=== PATIENT | female | born 1970 | race Caucasian/White ===

== ENCOUNTER → 2017-11-11 09:21 | Outpatient (CLI) | payer BC, SELFPAY ==
--- NOTE | 2017-11-11 09:30 | RAD_ITS ---
STUDY: X-RAY CHEST REASON FOR EXAM: Female, 47 years old. Pleural effusion. TECHNIQUE: PA and lateral views of the chest. COMPARISON: None. FINDINGS: There is a small to moderate-sized right pleural effusion at the anterolateral costophrenic sulcus, extending into the posterolateral basilar pleural space and oblique pleural fissure. Subsegmental airspace disease in the right base may be partial collapse or infection, the former more likely as there is no shift of the cardiac mediastinal structures. The left lung is clear. Normal size heart. Normal mediastinum and carlito. Normal visualized pulmonary arteries. Normal visualized aortic arch and descending thoracic aorta. Normal visualized thoracic spine. Normal visualized ribs, clavicles, and shoulders. There is no demonstrated abnormality of the visualized soft tissue structures of the upper abdomen. RAD/Chest PA and Lateral IMPRESSION: Small moderate size right pleural effusion with partial right lung base collapse. Infection is not excluded. Electronically Signed: Rigo Lynn MD at 22:13 EST , Service support ,
--- NOTE | 2017-11-11 09:35 | RAD_ITS ---
STUDY: X-RAY CHEST REASON FOR EXAM: Female, 47 years old. Pleural effusion. TECHNIQUE: Single right lateral decubitus view of the chest. The images degraded by grid artifact. COMPARISON: PA and lateral chest x-ray 0937 hours. FINDINGS: There is only a minimal layering component of the right pleural effusion, most of which appears loculated at the lateral right base. Partial collapse of the right lung base unchanged. The left lung remains clear. Normal size heart. Normal mediastinum and carlito. Normal visualized pulmonary arteries. Normal visualized aortic arch and descending thoracic aorta. Normal visualized thoracic spine. Normal visualized ribs, clavicles, and shoulders. There is no demonstrated abnormality of the visualized soft tissue structures of the upper abdomen. RAD/Special CXR (Obl/Decub/A/L) IMPRESSION: The right basilar pleural effusion is predominantly loculated. Partial collapse of right lung base unchanged. Infection is not excluded. Electronically Signed: Rigo Lynn MD at 22:17 EST , Service support ,
--- NOTE | 2017-11-11 09:35 | RAD_ITS ---
STUDY: X-RAY CHEST REASON FOR EXAM: Female, 47 years old. Pleural effusion. TECHNIQUE: Single lateral decubitus view of the chest. There is linear grid artifact. COMPARISON: PA and lateral chest x-ray 0937 hours. FINDINGS: There is no significant layering of the lateral basilar right pleural effusion. Partial collapse of the right lung base again noted. The left lung is clear, and no left pleural effusion is demonstrated. Normal size heart. Normal mediastinum and carlito. Normal visualized pulmonary arteries. Normal visualized aortic arch and descending thoracic aorta. Normal visualized thoracic spine. Normal visualized ribs, clavicles, and shoulders. There is no demonstrated abnormality of the visualized soft tissue structures of the upper abdomen. RAD/Special CXR (Obl/Decub/A/L) IMPRESSION: Loculated right lateral basilar pleural effusion with partial collapse in the right lung base. Infection is not excluded. Electronically Signed: Rigo Lynn MD at 22:43 EST , Service support ,
== END ==
PROVIDERS: Family Provider Family Medicine; PCP Family Medicine; Visit Provider Internal Medicine Pulmonary Disease
DX: J90 Pleural effusion, not elsewhere classified (principal)
CPT/HCPCS: 71046

== ENCOUNTER → 2017-11-13 08:55 | Outpatient (CLI) | payer BC, SELFPAY ==
--- NOTE | 2017-11-13 | IMM_PTH ---
PATIENT: PATSY ACEVEDO LOC: [facility]#:[id number] AGE/SX: 54/F ROOM: RE11/13/[address]: Dr. Artemio Yeboah MD : 1970 BED: DIS: SPEC #: [id number] RECD: 11/14/17 10:13 STATUS: ALISE REBlossom #: [id number] ROJELIO: 11/13/17 00:[address]: Artemio Yeboah V DEPT: IMMUNOHISTOCHEMISTRY RECD BY: Jazmin Plaza ENTERED: 11/14/17 10:14 SP TYPE: IMMUNO OTHR DR: Dr. Rasheed Miller, Tissues: THORACIC FLUID Procedures: CD20 (add) CD45 (add) CD5 (add) CD79A (add) CD3 (initial) PHYSICIAN & [place] [id number] SPECIMEN INFORMATION: Tissue Source: Thoracentesis fluid for cytology Clinical Info: Pleural effusion Specimen Number: [id number] CPT code: 65461, 76507 x4 METHODOLOGY: Deparaffinized sections of prefer/formalin-fixed tissue or PAP/DQ stained slides are incubated with monoclonal/polyclonal antibodies/oligonucleotide probes. Localization is made via biotin free immunoperoxidase method. Appropriate controls are performed and reacted as expected. Results on target cell population are indicated in the following table: RESULTS: ANTIBODY / CLONE RESULT CD3 (PS1) positive CD5 (SP10) positive CD45 (RP2/18) positive CD20 (L26) positive CD79a (11E3) positive These tests were developed and their performance characteristics determined by [facility]. They may not have been cleared or approved by the [place]. Food and Drug Administration. The FDA has determined that such clearance or approval is not necessary. INTERPRETATION: Thoracentesis fluid: Consistent with lymphocytic effusion, polytypic in nature. SJ:berta 11/15/17
--- NOTE | 2017-11-13 08:59 | US_ITS ---
STUDY: ULTRASOUND GUIDED RIGHT THORACENTESIS. REASON FOR EXAM: Female, 47 years old. Right pleural effusion. TECHNIQUE: Under direct sonographic guidance, a right-sided thoracentesis was performed by the pulmonary position. COMPARISON: None. FINDINGS: 450 mL of robert-colored fluid was removed. US/Thoracentesis W US IMPRESSION: Successful ultrasound-guided right thoracentesis. Electronically Signed: Unruly Pfeiffer MD at 11:13 EST Tel [phone], Service support ,
--- NOTE | 2017-11-13 09:00 | FLU_PTH ---
PATIENT: PATSY ACEVEDO LOC: [facility]#:[id number] AGE/SX: 54/F ROOM: RE11/13/[address]: Dr. Artemio Yeboah MD : 1970 BED: DIS: SPEC #: [id number] RECD: 11/13/17 12:04 STATUS: ALISE BRINDA #: [id number] ROJELIO: 11/13/17 09:[address]: Artemio Yeboah V DEPT: CYTOLOGY RECD BY: Jone Carrillo ENTERED: 11/13/17 12:05 SP TYPE: Fluid OTHR DR: Dr. Rasheed Miller, Tissues: THORACIC FLUID Procedures: Pap Stain (control) Special Stain Group II Surgery Specimen Level IV Cell Block Cytospin Fluid HEADER OPERATION: Thoracentesis PRE-OP DIAGNOSIS: Pleural effusion TISSUE SUBMITTED: Thoracentesis fluid for cytology DIAGNOSIS CYTOLOGY Thoracentesis fluid for cytology (cytospin and cell block): Negative for malignant cells. Consistent with lymphocytic effusion. See comment. SJ:rg 11/14/17 COMMENT Immunohistochemistry ([id number]) shows lymphocytes to be polytypicl in nature. Clinical correlation and appropriate follow up are necessary. CYTOLOGY STUDY Slides are reviewed. The specimen consists of numerous lymphocytes, a few macrophages, mesothelial cells and neutrophils. CYTOLOGY GROSS Received is 468 ml of cloudy robert fluid labeled with the patient's name and and designated per the requisition as thoracentesis. Submitted for cytology preparation including cell block. / CC:cc 11/13/17 TC:5 CPT: 07652, 82395
--- NOTE | 2017-11-13 09:48 | RAD_ITS ---
STUDY: X-RAY CHEST REASON FOR EXAM: Female, 47 years old. Post right thoracentesis. TECHNIQUE: PA and lateral views of the chest. COMPARISON: Comparison is made with prior study dated November 11, 2017. FINDINGS: The patient is status post right thoracentesis. Decreased right pleural effusion. Residual blunting of the right posterior costophrenic angle and persistent infiltrate in the right lower lobe. There is no evidence of pneumothorax. Normal size heart. Normal mediastinum and carlito. Normal visualized pulmonary arteries. Normal visualized aortic arch and descending thoracic aorta. Normal visualized thoracic spine. Normal visualized ribs, clavicles, and shoulders. There is no demonstrated abnormality of the visualized soft tissue structures of the upper abdomen. RAD/Chest PA and Lateral IMPRESSION: Status post right thoracentesis. Residual pleural parenchymal changes at the right lung base. There is no evidence of pneumothorax. Electronically Signed: Unruly Pfeiffre MD at 10:16 EST Tel [phone], Service support ,
[2017-11-13 10:43] LABS: Cytology, Body Fluid / CSF SEE PATHOLOGY REPORT
[2017-11-13 11:22] LABS: Body Fluid Mononuclear WBC # 7.362 10^3/uL; Body Fluid Mononuclear WBC % 88.5 %; Body Fluid Polynuclear WBC % 11.5 %; Body Fluid Total Cells Counted 8.354 10^3/ul (0.000-0.000); White Blood Count/Body Fluid 8.322 10^3/uL
[2017-11-13 12:04] LABS: LDH,Body Fluid 317 Units/l (Not Establ.); Protein, Body Fluid 5.7 g/dL (Not Establ.)
[2017-11-13 12:09] LABS: Lymphocytes 85 %; Monocytes 4 %; Neutrophil (Segs) 2 %
[2017-11-13 12:10] LABS: Appearance/Body Fluid SL CLDY; Auto B Fluid Analyzer BKGD Ct COUNTS W/IN LIMITS (W/IN LIMITS); Body Fluid QC Type(s) BF1Q; Color/Body Fluid YELLOW; Other Cell Type/BF 9 %; Source- Body Fluid THORACENTESIS
[2017-11-14 09:14] LABS: Pathologist Comment/Body Fluid Reviewed
== END ==
PROVIDERS: Family Provider Family Medicine; PCP Family Medicine; Visit Provider Internal Medicine Pulmonary Disease
DX: J90 Pleural effusion, not elsewhere classified (principal)
CPT/HCPCS: 32555; 71046; 83615; 84157; 87015; 87070; 87075; 87116; 87205; 87206; 88108; 88305; 88313; 88341; 88342; 89050

== ENCOUNTER → 2018-01-01 09:42 | Outpatient (CLI) | payer BC, SELFPAY ==
--- NOTE | 2018-01-01 09:45 | RAD_ITS ---
STUDY: X-RAY CHEST REASON FOR EXAM: Female, 47 years old. Pleural effusion follow-up. TECHNIQUE: Frontal and lateral views of the chest. COMPARISON: None. FINDINGS: The lungs are clear and expanded. There is no demonstrated pleural abnormality. No evidence for pleural effusion. Normal size heart. Normal mediastinum and carlito. Normal visualized pulmonary arteries. Normal visualized aortic arch and descending thoracic aorta. Normal visualized thoracic spine. Normal visualized ribs, clavicles, and shoulders. There is no demonstrated abnormality of the visualized soft tissue structures of the upper abdomen. RAD/Chest PA and Lateral IMPRESSION: Normal x-ray examination of the chest. Electronically Signed: Jed Ramesh MD at 18:13 EDT , Service support ,
== END ==
PROVIDERS: Family Provider Family Medicine; PCP Family Medicine; Visit Provider Internal Medicine Pulmonary Disease
DX: J90 Pleural effusion, not elsewhere classified (principal)
CPT/HCPCS: 71046